=== PATIENT | male | born 1960 | race African-American/Black ===

== ENCOUNTER 2017-11-20 13:01 | Inpatient (IN) | payer OTHER ==
[~2017-11-20] VITALS: Ht 180.3 cm; Wt 90.0 kg
[~2017-11-20 13:01] MED LIST: ASPIR-TRIN325 M1 PO; AVELOX400 MG PO; BAYER CHEWABLE81 MG PO; DIOVAN HCT 11 TABLET PO; ENDOCET 5-3251 EACH PO; METRONIDAZOLE; NOHOMEMEDS; ZOFRAN4 MG PO; [UNRECOGNIZED DRUG - OTHER]
[2017-11-20 13:59] LABS: HEMATOCRIT 50.6 % (38.0-50.0); HEMOGLOBIN 16.6 G/DL (12.5-16.6); MCH 28.5 PG (29.0-34.0); MCHC 32.8 G/DL (30.0-36.0); MCV 86.8 FL (86-99); PLATELET COUNT 246 K/uL (156-360); RBC DIS.WIDTH-SD 44.6 % (39-53); RED BLOOD COUNT 5.83 M/uL (4.00-5.50); WHITE BLOOD COUNT 9.3 K/uL (4.1-10.2)
[2017-11-20 14:13] LABS: CHLORIDE 103 mEq/L (99-109); SODIUM 138 mEq/L (136-147)
[2017-11-20 14:14] LABS: GLUCOSE 102 mg/dL (70-99)
[2017-11-20 14:18] LABS: GFR ESTIMATE (CALCULATED) > 59 mL/min/ (58.99-99999)
[2017-11-20 14:19] LABS: UREA NITROGEN (BUN) 18 mg/dL (9-23)
[2017-11-20 17:04] LABS: TROP-I INTERPRETATION NEGATIVE; TROPONIN-I < 0.01 ng/mL (0.0-0.30)
[2017-11-20] MEDS ORDERED: HYDROCHLOROTH12.5 M3 PO (17:09)
[2017-11-20] MEDS ORDERED: LISINOPRIL10 MG PO (17:09)
[2017-11-20] MEDS ORDERED: MELOXICAM15 MG PO (17:10)
[2017-11-20] MEDS ORDERED: EXCEDRIN MIGRA1 EAC3 PO (17:13)
[2017-11-20] MEDS ORDERED: ARTIFICIAL TEAR15 M1 BOTH EYES (17:14)
[2017-11-20 19:42] LABS: Estimated Average Glucose 131 mg/dL (70-123); HEMOGLOBIN A1c (GLYCOHEMOGLOB) 6.2 % HGB (Below 5.7)
[2017-11-20 19:47] VITALS: BP 148/92
[2017-11-20 19:52] LABS: HDL CHOLESTEROL 53 MG/DL (Desirable>=40); LDL CHOLESTEROL 174 mg/dL (Desirable<100); NON-HDL CHOLESTEROL 196 mg/dL (Desirable<160); TOTAL CHOLESTEROL 249 mg/dL (Desirable<200); TRIGLYCERIDES 108 MG/DL (Normal: <150)
[2017-11-21] VITALS (7 sets, daily range): BP systolic 115–134; BP diastolic 71–116
[2017-11-22] VITALS (7 sets, daily range): BP systolic 115–143; BP diastolic 78–116
[2017-11-22 11:01] LABS: MCH 28.8 PG (29.0-34.0); MCHC 33.3 G/DL (30.0-36.0); MCV 86.5 FL (86-99); PLATELET COUNT 258 K/uL (156-360); RBC DIS.WIDTH-CV 14.2 % (11.8-14.6); RBC DIS.WIDTH-SD 44.8 % (39-53); RED BLOOD COUNT 6.24 M/uL (4.00-5.50); WHITE BLOOD COUNT 9.2 K/uL (4.1-10.2)
[2017-11-22 18:07] LABS: HDL CHOLESTEROL 45 MG/DL (Desirable>=40); LDL CHOLESTEROL 145 mg/dL (Desirable<100); NON-HDL CHOLESTEROL 169 mg/dL (Desirable<160); TOTAL CHOLESTEROL 214 mg/dL (Desirable<200); TRIGLYCERIDES 122 MG/DL (Normal: <150)
[2017-11-23 03:39] VITALS: BP 110/80
[2017-11-23 07:00] LABS: HEMATOCRIT 54.6 % (38.0-50.0); HEMOGLOBIN 17.5 G/DL (12.5-16.6); MCHC 32.1 G/DL (30.0-36.0); MCV 87.2 FL (86-99); PLATELET COUNT 264 K/uL (156-360); RBC DIS.WIDTH-CV 13.8 % (11.8-14.6); RBC DIS.WIDTH-SD 44.6 % (39-53); RED BLOOD COUNT 6.26 M/uL (4.00-5.50); WHITE BLOOD COUNT 10.1 K/uL (4.1-10.2)
[2017-11-23 07:23] LABS: CHLORIDE 103 MEQ/L (99-109); CREATININE 1.1 MG/DL (0.6-1.3); GFR ESTIMATE (CALCULATED) > 59 mL/min/ (58.99-99999); GLUCOSE 110 mg/dL (70-99); POTASSIUM 4.6 MEQ/L (3.7-5.4); SODIUM 141 MEQ/L (136-147); UREA NITROGEN (BUN) 24 mg/dL (9-23)
[2017-11-23 07:44] VITALS: BP 118/73
[2017-11-23 12:06] VITALS: BP 118/73
[2017-11-23 16:10] VITALS: BP 129/88
[2017-11-23 20:02] VITALS: BP 120/82
[2017-11-24 00:07] VITALS: BP 134/90
[2017-11-24 04:00] VITALS: BP 99/64
[2017-11-24 07:20] VITALS: BP 124/90
[2017-11-24 07:23] LABS: BASOPHIL (%) 0.7 % (0-1); BASOPHIL COUNT 0.1 K/uL (0-0.1); EOSINOPHIL (%) 0.4 % (0-5); HEMOGLOBIN 17.4 G/DL (12.5-16.6); LYMPHOCYTE (%) 38.8 % (15-42); LYMPHOCYTE COUNT 3.9 K/uL (1.0-2.8); MCH 28.1 PG (29.0-34.0); MCHC 32.8 G/DL (30.0-36.0); MCV 85.6 FL (86-99); MONOCYTE (%) 10.7 % (3-12); MONOCYTE COUNT 1.1 K/uL (0-0.8); NEUTROPHIL (%) 48.4 % (45-76); NEUTROPHIL COUNT 4.8 K/uL (1.8-6.4); PLATELET COUNT 246 K/uL (156-360); RBC DIS.WIDTH-CV 13.7 % (11.8-14.6); RBC DIS.WIDTH-SD 43.2 % (39-53); RED BLOOD COUNT 6.19 M/uL (4.00-5.50); WHITE BLOOD COUNT 9.9 K/uL (4.1-10.2)
[2017-11-24 07:39] LABS: CHLORIDE 103 MEQ/L (99-109); CREATININE 1.1 MG/DL (0.6-1.3); GFR ESTIMATE (CALCULATED) > 59 mL/min/ (58.99-99999); GLUCOSE 104 mg/dL (70-99); POTASSIUM 4.4 MEQ/L (3.7-5.4); SODIUM 137 MEQ/L (136-147); UREA NITROGEN (BUN) 25 mg/dL (9-23)
[2017-11-24] MEDS ORDERED: ASPIR-LOW81 MG PO (14:51)
[2017-11-24] MEDS ORDERED: ATORVASTATIN CA40 MG PO (14:51)
[2017-11-27 11:07] LABS: JAK2 Mutation Result NOT DETECTED (())
[2017-11-27 11:38] LABS: JAK2 Exon 12 Mutation NOT DETECTED (())
== END 2017-11-24 19:03 | DRG 66 ==
LOC: EME 13:01 → EDOF 18:54 → 5WEST 18:54 → EDOF 18:54 → ENRESERV 18:57 → 5WEST 19:33 → 5SOUTH 11-22 11:06 → 5WEST 11-22 11:06 → ENRESERV 11-22 11:09 → 5SOUTH 11-22 14:16
PROVIDERS: Anesthesiology; Internal Medicine
DX: I63.9 Cerebral infarction, unspecified (principal); D75.1 Secondary polycythemia; R73.03 Prediabetes; I10 Essential (primary) hypertension; E78.5 Hyperlipidemia, unspecified; M19.90 Unspecified osteoarthritis, unspecified site; G43.909 Migraine, unspecified, not intractable, without status migrainosus; R53.1 Weakness; Z87.891 Personal history of nicotine dependence; R20.0 Anesthesia of skin
CPT/HCPCS: 70450; 70551; 71020; 80048; 80061; 81256 90; 81270 90; 82728; 83036; 83735; 84484; 85025; 85027; 93005; 93880; 97530 GO; 99281; 99285; G0378; J1650